=== PATIENT | female | born 1960 | race Caucasian/White ===

== ENCOUNTER → 2020-09-02 | Outpatient (CLI) | payer BC ==
[2020-09-02 13:34] LABS: Appearance,Urine Clear (Clear); Bilirubin,Urine Negative (Negative); Blood,Urine Negative (Negative); Color,Urine Light Yellow; Glucose,Urine (UA) Negative (Negative); Ketones,Urine Negative (Negative); Leukocyte Esterase,Urine Negative (Negative); Nitrite,Urine Negative (Negative); Protein,Urine Negative (Negative); Specific Gravity,Urine 1.011 (1.001-1.035); Urobilinogen,Urine <2.0 mg/dL (<2.0)
== END | disposition home or self-care (01) ==
LOC: LABPAT 12:04
PROVIDERS: ATTEND Orthopaedic Surgery Orthopaedic Surgery of the Spine
DX: M50.00 Cervical disc disorder with myelopathy, unspecified cervical region (principal); M48.02 Spinal stenosis, cervical region
CPT/HCPCS: 81003; 86850; 86900; 86901

== ENCOUNTER 2020-09-10 07:14 | Day surgery (SDC) | payer BC ==
[2020-09-01 11:44] VITALS: BMI 30.2
[~2020-09-10 07:14] MED LIST: DEXAMETHASONE SOD PHOSPHATE 4 MG/ML 1 ML VIAL IV ONE; LACTATED RINGERS 1,000 ML IV SCH; LIDOCAINE 1% (10MG/ML) FOR IV START INTRADERMA PRN; ONDANSETRON 4 MG/2 ML VIAL IVP ONE; VANCOMYCIN 1,000 MG in SODIUM CHLORIDE 0.9% 250 ML IVPB PRN
[2020-09-10 08:09] LABS: Glucose,Whole Blood 98 mg/dL (75-99)
[2020-09-10] MEDS ORDERED: DEXAMETHASONE SOD PHOSPHATE 10 MG/ML 1 ML VIAL ONE (08:23)
[2020-09-10] MEDS ORDERED: HYDROmorphone (PF) 1 MG/ML ONE (08:23)
[2020-09-10] MEDS ORDERED: PROPOFOL 10 MG/ML 20 ML VIAL IV ONE (08:23)
[2020-09-10] MEDS ORDERED: LIDOCAINE 1% INJ 10MG/ML (20 ML MDV) ONE (08:23)
[2020-09-10] MEDS ORDERED: PHENYLEPHRINE 10 MG/ML VIAL ONE (08:23)
[2020-09-10] MEDS ORDERED: ePHEDrine SULFATE/0.9% NACL/PF 50 MG/5 ML SYRINGE IV ONE (08:23)
[2020-09-10] MEDS ORDERED: MIDAZOLAM 2 MG/2 ML VIAL ONE (08:23)
[2020-09-10] MEDS ORDERED: SUCCINYLCHOLINE CHLORIDE 100 MG/5 ML SYR IV ONE (08:23)
[2020-09-10] MEDS ORDERED: fentaNYL (PF) 50 MCG/ML 2 ML AMP ONE (08:23)
[2020-09-10] MEDS ORDERED: GELATIN SPONGE,ABSORB (LARGE) 1 EACH SPONGE TOPICAL ONE (08:25)
[2020-09-10] MEDS ORDERED: LIDOCAINE 0.5%-EPI 1:200,000 50 ML VIAL SQ ONE (08:25)
[2020-09-10] MEDS ORDERED: THROMBIN (BOVINE) 5,000 UNIT VIAL TOPICAL ONE (08:25)
[2020-09-10] MEDS ORDERED: ceFAZolin 1,000 MG in SODIUM CHLORIDE 0.9% 1,000 ML IRRIGATION ONE (09:10)
--- NOTE | 2020-09-10 09:33 | XR ---
EXAMINATION TYPE: XR cervical spine 1V DATE OF EXAM: 09/10/2020 COMPARISON: NONE HISTORY: Neck pain. TECHNIQUE: Portable crosstable lateral view cervical spine obtained intraoperatively. FINDINGS: Exam is for surgical planning and upper diagnostic purposes. Metallic pointer localizes to the C5-C6 disc space level on image saved. IMPRESSION: As above.
[2020-09-10] MEDS ORDERED: LACTATED RINGERS 1,000 ML IV ONE (10:47)
--- NOTE | 2020-09-10 10:49 | XR ---
EXAMINATION TYPE: XR cervical spine 1V DATE OF EXAM: 09/10/2020 COMPARISON: Cervical spine x-ray earlier today HISTORY: Neck pain. TECHNIQUE: Portable crosstable lateral view of cervical spine is obtained intraoperatively. FINDINGS: There is new anterior fusion plate with artificial hyperdense disc space material at C4-C7 levels. Satisfactory alignment is seen on intraoperative crosstable lateral view obtained. Suboptimal visualization below the C7 vertebra. Partial visualization of anterior endotracheal tube. IMPRESSION: As above.
[2020-09-10] MEDS ORDERED: HYDROmorphone 0.5 MG/0.5 ML SYRINGE IVP PRN (11:04)
[2020-09-10] MEDS ORDERED: ONDANSETRON 4 MG/2 ML VIAL IVP PRN (11:05)
[2020-09-10] MEDS ORDERED: ACETAMINOPHEN TAB 325 MG TAB PO PRN (11:05)
[2020-09-10] MEDS ORDERED: HYDROcodone/APAP 5-325MG 1 EACH TAB PO PRN (11:05)
[2020-09-10] MEDS ORDERED: ACETAMINOPHEN TAB 500 MG TAB PO PRN (11:07)
[2020-09-10] MEDS ORDERED: ALBUTEROL NEBULIZED 2.5 MG/3 ML INHALATION PRN (11:07)
--- NOTE | 2020-09-10 11:24 | P.OP ---
Date of Procedure: 09/10/20 Preoperative Diagnosis: Myelopathy, cervical myelomalacia, severe cervical stenosis C4 5 C5 6 C6 7, herniated nucleus pulposis C4 5 C5 6 C6 7, upper extremity radiculopathy, upper extremity weakness, neck pain Postoperative Diagnosis: Same Anesthesia: GETA Pathology: none sent Condition: stable Disposition: PACU Description of Procedure: BRIEF OPERATIVE NOTE Preoperative Diagnosis:Myelopathy, cervical myelomalacia, severe cervical stenosis C4 5 C5 6 C6 7, herniated nucleus pulposis C4 5 C5 6 C6 7, upper extremity radiculopathy, upper extremity weakness, neck pain Postoperative Diagnosis: Same Procedure: Anterior cervical decompression and fusion C4 5 C5 6 C6 7 Placement of interbody graft C4 5 C5 6 C6 7 Application of anterior cervical plate C4 5 6 and 7 Surgeon: Dr. Warner Lan/Wan Engineer: Palomo Soria is present throughout the entire the case persistence during positioning, dissection, exposure, visualization, and all crucial elements of the case as well as closure. Anesthesia: General anesthesia per Dr. Morgan Estimated blood loss: approximate 75 mL Complications: None apparent Components implanted: K2M [place] anterior cervical plate system with screws and ViKos interbody allograft bone graft with DBX bone putty Disposition: To recovery room in good stable condition. OPERATIVE INDICATIONS The patient has had long-standing issues in their neck and upper extremities. she is found have evidence of severe stenosis at her cervical spine with disc herniation and changes within the spinal cord. She is exhibiting some early cervical myelopathy to along with myelomalacia at her cervical spine. She is not having any benefit conservative care and she had multiple levels of significant compression. The patient has been through conservative treatment. We discussed various treatment options including surgery, and the patient wishes to proceed with surgery We discussed the risk, patient's alternatives and benefits of surgery including but not limited to, risk of bleeding risk of infection, risk of need for further surgery, risk of decreased, loss of motion, muscle function, malunion nonunion, hardware failure, nerve damage, paralysis, heart attack, and . OPERATIVE SUMMARY After discussing all the risks, patient alternatives and benefits at length, the patient elected to proceed with surgical intervention, signed informed consent, and presented for their procedure. The patient was seen and examined in the preoperative holding area and the surgical site was marked. The patient was given antibiotics and brought to the operating room. The patient was positioned on the operating room table in a supine position being careful to pad any bony prominences and pressure points. The patient was sedated and intubated by anesthesia in standard fashion. Once the airway and C- spine were stabilized the patient's arms were padded and tucked at her side, with her shoulders gently taped. The head was placed in a donut pad with the neck in good neutral alignment and position. We were careful to maintain the patient's cervical spine and good neutral alignment and position throughout. The patient was prepped and draped in a normal standard fashion. An appropriate timeout and keystone protocol performed. We were able to proceed with the surgery. The local wound area was infiltrated with local anesthetic. An incision was made transversely approximately 2-1/2 cm over the appropriate levels at C5 6 . Dissection was taken down subcutaneously to the level of the platysma which was split in line with its fibers. Dissection was taken with a carotid approach, with the trachea and esophagus medial and the carotid sheath laterally. We dissected down to the anterior surface of the vertebral bodies. Intraoperative x-ray was taken which showed a marker at the appropriate level at C5 6 . With the appropriate level positively confirmed, we were able to proceed with discectomy at the appropriate levels, starting at C4 5 and then moving see 56 and then C6 7. All of the operative levels were exposed appropriately. The patient had all their twitches back, and there was no evidence of recurrent laryngeal issue. The wound was copiously irrigated and suctioned dry as had been done periodically throughout the case. At the appropriate level/levels, I established an annulotomy with an 11 blade scalpel. A discectomy was performed with a combination of pituitary rongeurs, curettes, a high-speed bur, and Kerrison rongeurs. The posterior longitudinal ligament was taken down as were any posterior osteophytes. note was made of significant disc degeneration as well as disc herniation. There is large osteophytes posteriorly causing further compression of the spinal cord and these were removed as well. There is a particularly large posterior osteophyte at C5 6 which was removed toward the left side. This gave good central and bilateral foraminal decompression. There is no evidence of any dural tear or leak. The endplates were prepared with a high-speed bur. With the endplates in good parallel position, I was able to size for the appropriate size interbody graft. The wound was irrigated and suctioned dry the graft was prepared and malleted into position. It had good alignment and position with the anterior surface flush with the anterior surface of the vertebral bodies. This was done similarly the appropriate levels first at C4 5 and then at C5 6 and then at C6 7 . With the grafts intact, I was able to measure and contour and appropriate sized plate. The plate was positioned at the midline over the appropriate levels at C4 5 6 and 7. Screw holes were established with a hand drill and drill guide. Screws were placed in good alignment and position with excellent bony purchase. They were seated under the locking device. The construct was checked and found to be stable. Intraoperative x-ray was taken which showed good alignment and position of the implants at the appropriate levels. There was no evidence of any dural tear or leak. Good hemostasis was maintained. The wound was copiously irrigated and suctioned dry as had been done periodically throughout the case. The platysma was closed with absorbable suture. The subcutaneous tissue was closed. The subcuticular tissue was closed with absorbable suture. The wound was cleaned and dried and dressed appropriately. A soft cervical collar was placed appropriately. The patient was woken up by anesthesia, extubated, transferred back gently to their hospital bed and brought to the recovery room in good stable condition. The patient will be admitted to the hospital for appropriate postoperative care, medical management and monitoring. We will continue to follow them closely about the postoperative course.
[2020-09-10] MEDS: BENZOCAINE/MENTHOL LOZENG 1 EACH LOZENGE MUCOUS MEM PRN ×2 (16:11→20:22)
[2020-09-10] MEDS: SODIUM CHLORIDE 0.9% 1,000 ML IV SCH (16:28)
[2020-09-10] MEDS: SYMBICORT 160-4.5 MCG INHALER INHALATION SCH (19:35)
[2020-09-10] MEDS: metFORMIN 500 MG TAB PO SCH (20:33)
[2020-09-10] MEDS ORDERED: DEXAMETHASONE SOD PHOSPHATE 4 MG/ML 1 ML VIAL IV STA (21:07)
[2020-09-10] MEDS ORDERED: traMADol 50 MG TAB PO PRN (21:13)
[2020-09-10] MEDS: ACETAMINOPHEN TAB 325 MG TAB PO PRN (21:30)
[2020-09-11] MEDS: SODIUM CHLORIDE 0.9% 1,000 ML IV SCH (00:31)
[2020-09-11] MEDS: BENZOCAINE/MENTHOL LOZENG 1 EACH LOZENGE MUCOUS MEM PRN ×3 (01:25→10:20)
[2020-09-11] MEDS: ACETAMINOPHEN TAB 325 MG TAB PO PRN ×3 (01:26→10:20)
[2020-09-11] MEDS ORDERED: LEVOTHYROXINE 100 MCG TAB PO SCH (06:30)
[2020-09-11] MEDS: SYMBICORT 160-4.5 MCG INHALER INHALATION SCH (08:17)
[2020-09-11] MEDS: SENNOSIDES-DOCUSATE SODIUM 1 EACH TAB PO SCH ×2 (08:44→08:46)
[2020-09-11] MEDS: metFORMIN 500 MG TAB PO SCH (08:45)
[2020-09-11] MEDS ORDERED: ATORVASTATIN 40 MG TAB PO SCH (09:00)
[2020-09-11] MEDS ORDERED: atenoloL 50 MG TAB PO SCH (09:00)
[2020-09-11] MEDS ORDERED: MONTELUKAST 10 MG TAB PO SCH (09:00)
--- NOTE | 2020-09-11 09:20 | P.DS ---
Providers Date of admission: 09/10/20 Attending physician: Hamilton Warner Primary care physician: Dania Isidro [facility] Hospital Course: The patient presented on the day of admission as per their operative note. She has cervical myelopathy with myelomalacia and due to her severe cervical stenosis. She underwent anterior cervical decompression with discectomy and fusion yesterday as per her operative note. She feels like her neck and her left upper extremity are doing very well. She feels like her right upper extremity still feeling numb tingling with some altered sensation. She is tolerating her diet adequately. She is voiding freely and mobile in her room. Physical Exam The incision site is clean dry and intact. There is no erythema no drainage. There is no purulence no evidence of infection. Her neck is clean dry. It is supple. The area is soft. Abdomen soft and nontender. Chest has good excursion with deep inspiration and expiration. The patient has active and passive range of motion intact at the upper and lower extremities. There is no acute change in neurologic status. She is able to move her upper extremities, she is moving her right upper extremity so slowly. Hospital Course Postoperative day #1 status post anterior cervical decompression with discectomy and fusion C4 5 C5 6 C6 7 for her cervical myelopathy with myelomalacia and cervical stenosis with disc herniation. The patient has been making adequate progress postoperatively. She has some myelomalacia and myelopathy and there may be some irritation towards the right today. We will monitor this and see how it continues to improve over time. I don't have further plans of surgical intervention right now. They have completed the prophylactic antibiotics without any signs or symptoms of infection. The patient has been able to advance their diet, and is tolerating diet adequately. The pain was initially controlled with IV medications and is now controlled appropriately with oral medications. The patient has been able to increase their mobilization. The patient has progressed appropriately. I think they are in good stable condition for discharge today. They will be sent home with appropriate prescriptions. The patient has multiple ALLERGIES and is very fearful of taking any narcotic medication. She says that she does well with exercise Tylenol at home and at his which she is planning to take. If she is having too much problem she'll call her office for alternate medications. I answered their questions to the best of my ability in a language that they can understand and they are agreeable with the plan. They will follow up as directed in approximately one week or sooner if she is having problems. Patient Condition at Discharge: Good Plan - Discharge Summary Discharge Rx Participant: No New Discharge Prescriptions: No Action metFORMIN HCL [Glucophage] 500 mg PO BID Montelukast [Singulair] 10 mg PO DAILY Rosuvastatin Calcium [Crestor] 20 mg PO DAILY Levothyroxine Sodium [Synthroid] 100 mcg PO DAILY Atenolol [Tenormin] 50 mg PO DAILY Valsartan/Hydrochlorothiazide [Valsartan-Hctz 160-25 mg Tab] 1 each PO QAM Acetaminophen [Tylenol Extra Strength] 500 mg PO DIRECTED PRN PRN Reason: Pain Albuterol Sulfate [Albuterol Sulfate Hfa] 2 puff PO Q6H PRN PRN Reason: sob Budesonide-Formot 160-4.5 Mcg [Symbicort 160-4.5 Mcg Inhaler] 2 puff INHALATION BID Discharge Medication List Acetaminophen [Tylenol Extra Strength] 500 mg PO DIRECTED PRN 09/01/20 [History] Albuterol Sulfate [Albuterol Sulfate Hfa] 2 puff PO Q6H PRN 09/01/20 [History] Atenolol [Tenormin] 50 mg PO DAILY 09/01/20 [History] Budesonide-Formot 160-4.5 Mcg [Symbicort 160-4.5 Mcg Inhaler] 2 puff INHALATION BID 09/01/20 [History] Levothyroxine Sodium [Synthroid] 100 mcg PO DAILY 09/01/20 [History] Montelukast [Singulair] 10 mg PO DAILY 09/01/20 [History] Rosuvastatin Calcium [Crestor] 20 mg PO DAILY 09/01/20 [History] Valsartan/Hydrochlorothiazide [Valsartan-Hctz 160-25 mg Tab] 1 each PO QAM 09/01/20 [History] metFORMIN HCL [Glucophage] 500 mg PO BID 09/01/20 [History] Follow up Appointment(s)/Referral(s): Hamilton Warner DO [Doctor of Osteopathic Medicine] - 1 Week Activity/Diet/Wound Care/Special Instructions: Keep site clean. May shower with waterproof Tegaderm intact. Do not soak in a tub. After 72 hours postoperatively, patient May remove dressing and then may shower with area uncovered. Leave Steri-Strips intact and allow them to fray off on their own. May ambulate as tolerated. Avoid heavy or rigorous activity. No repetitive bending twisting or lifting. No overhead work. Discharge Disposition: HOME SELF-CARE
[2020-09-11 09:44] VITALS: BP 135/83; PULSE 97; RESP 20; TEMP 97.3
== END 2020-09-11 10:35 | disposition home or self-care (01) ==
LOC: OR 07:14 → 6PED 11:01 → OR 09-11 10:35
PROVIDERS: ATTEND Orthopaedic Surgery Orthopaedic Surgery of the Spine
DX: M50.021 Cervical disc disorder at C4-C5 level with myelopathy (principal); M50.121 Cervical disc disorder at C4-C5 level with radiculopathy; M48.02 Spinal stenosis, cervical region; M47.22 Other spondylosis with radiculopathy, cervical region; G95.89 Other specified diseases of spinal cord; M79.12 Myalgia of auxiliary muscles, head and neck; H91.90 Unspecified hearing loss, unspecified ear; I10 Essential (primary) hypertension; J45.909 Unspecified asthma, uncomplicated; K21.9 Gastro-esophageal reflux disease without esophagitis; G43.909 Migraine, unspecified, not intractable, without status migrainosus; F32.9 Major depressive disorder, single episode, unspecified; E07.9 Disorder of thyroid, unspecified; Z79.51 Long term (current) use of inhaled steroids; Z79.84 Long term (current) use of oral hypoglycemic drugs; Z79.890 Hormone replacement therapy; Z79.899 Other long term (current) drug therapy; Z98.51 Tubal ligation status; E78.5 Hyperlipidemia, unspecified; Z91.040 Latex allergy status; Z91.041 Radiographic dye allergy status; Z88.1 Allergy status to other antibiotic agents; Z88.5 Allergy status to narcotic agent; Z91.09 Other allergy status, other than to drugs and biological substances; Z97.3 Presence of spectacles and contact lenses; Z88.7 Allergy status to serum and vaccine; Z88.2 Allergy status to sulfonamides; Z98.891 History of uterine scar from previous surgery; Z83.3 Family history of diabetes mellitus; Z82.49 Family history of ischemic heart disease and other diseases of the circulatory system
CPT/HCPCS: 94640 ×2; 72020; 22551; 22552 ×2; 22853 ×3; 22846; 20930; C1713 ×2; C1762 ×2; J2250; J3370; J1100 ×2; J2370; J2405; J0690; J2001; J3010; J1170; J0330; J2704; 86850; 86900; 86901